=== PATIENT | male | born 1965 | race Two or more races ===

== ENCOUNTER 2024-07-13 12:11 | Emergency (ER) | payer OTHER, MEDICAID, SELFPAY ==
[2024-07-13 12:23] VITALS: BP 175/97; PULSE 101; RESP 20; TEMP 37.2; O2SAT 95; BMI 42.9
--- NOTE | 2024-07-13 12:49 | EDNOTE_ITS ---
ED Dental RME/HPI General Chief complaint: Dental/Oral/Throat Stated complaint: UPPER FRONT TOOTH PAIN X 1D Time Seen by Provider: 07/13/24 12:16 Source: patient Arrival date/time: 07/13/24 12:11 58-year-old male with no known medical history presents to the emergency room with a chief complaint of an abscess to the hard palate as well as dental pain x 1 day. Mode of arrival: ambulatory Limitations: no limitations Related Data Previous Rx's ?Medication ?Instructions ?Recorded naproxen 500 mg tablet 500 mg PO BID PRN pain #30 tabs 02/28/24 clindamycin HCl 150 mg capsule 450 mg (3 x 150 mg) PO TID 7 days 07/13/24 #63 caps Allergies Allergy/AdvReac Type Severity Reaction Status Date / Time ibuprofen Allergy Intermediate Rash Verified 07/13/24 12:14 Review of Systems Review of Systems Systems Reviewed: All systems reviewed, normal except as documented Constitutional Constitutional: Reports system reviewed and no additional complaints, except as documented, Denies fatigue, Denies fever(s), Denies headache(s) and Denies weakness Eyes Eyes: Reports system reviewed and no additional complaints, except as documented, Denies blurry vision and Denies change in vision ENT Ears, Nose, Mouth, and Throat: Reports system reviewed and no additional complaints, except as documented, Denies otalgia, Denies headache(s), Reports mouth pain, Denies nasal congestion, Denies throat swelling and Denies vertigo Cardiovascular Cardiovascular: Reports system reviewed and no additional complaints, except as documented, Denies chest pain, Denies dyspnea and Denies dyspnea on exertion Respiratory Respiratory: Reports system reviewed and no additional complaints, except as documented, Denies chest congestion, Denies cough, Denies dyspnea, Denies dyspnea on exertion and Denies wheezing Gastrointestinal Gastrointestinal: Reports system reviewed and no additional complaints, except as documented, Denies abdominal pain, Denies cramping, Denies nausea and Denies vomiting Genitourinary Genitourinary: Reports system reviewed and no additional complaints, except as documented, Denies dysuria and Denies hematuria Musculoskeletal Musculoskeletal: Reports system reviewed and no additional complaints, except as documented and Denies back pain Integumentary/Breasts Skin/Breast: Reports system reviewed and no additional complaints, except as documented and Denies wounds Neurologic Neurologic: Reports system reviewed and no additional complaints, except as documented, Denies confusion, Denies headache(s), Denies lack of coordination, Denies vertigo and Denies weakness Psychiatric Psychiatric: Reports system reviewed and no additional complaints, except as documented, Denies anxiety, Denies confusion, Denies depression, Denies paranoia, Denies suicidal ideation and Denies tactile hallucinations Endocrine Endocrine: Reports system reviewed and no additional complaints, except as documented and Denies fatigue Hematologic/Lymphatic Hematologic/Lymphatic: Reports system reviewed and no additional complaints, except as documented and Denies lymphadenopathy Allergic/Immunologic Allergic/Immunologic: Reports system reviewed and no additional complaints, except as documented, Denies throat swelling, Denies urticaria and Denies wheezing Past Medical History Past Medical History CARDIAC: Negative Congestive Heart Failure RESPIRATORY: Negative Chronic Obstructive Pulmonary Disease (COPD) GENITOURINARY: Negative Renal Disease ENDOCRINE: Negative Diabetes Mellitus Type 1 or Diabetes Mellitus Type 2 Social History SMOKING STATUS: Current every day smoker ED Exam General Limitations: Present no limitations General appearance: Present alert and in no apparent distress Head Head exam: Present atraumatic Eye Eye exam: Present normal appearance, PERRL and EOMI ENT ENT exam: Present normal exam, normal oropharynx and mucous membranes moist Expanded ENT Exam External ear exam: Present normal external inspection Teeth exam: Present dental caries and dental tenderness # Teeth numbered: 2 1. Other (Hard palate abscess) Neck Neck exam: Present normal inspection, full ROM and trachea midline Chest Chest inspection: Present normal inspection and symmetric chest wall rise Respiratory Respiratory exam: Present normal lung sounds bilaterally Cardiovascular Cardiovascular exam: Present regular rate, normal rhythm and normal heart sounds Abdominal Exam Abdominal exam: Present soft and normal bowel sounds Extremities Exam Extremities exam: Present normal inspection and full ROM Back Exam Back exam: Present normal inspection and full ROM Neurological Exam Neurological exam: Present alert, oriented X3 and CN II-XII intact Psychiatric Psychiatric exam: Present normal affect and normal mood Skin Skin exam: Present warm, dry, intact and normal color Course Quality Measures none Orders Category Date Time Status Clindamycin Vial [Cleocin vial] Med 07/13/24 12:36 Discontinued 600 mg IM X1 ONE HYDROcodone*/APAP 5/325 [[place] 5/325] Med 07/13/24 12:36 Discontinued 1 tab PO X1 ONE Vital Signs Vital signs: Vital Signs Temperature 98.9 F 07/13/24 12:23 Pulse Rate 101 H 07/13/24 12:23 Respiratory Rate 20 07/13/24 12:23 Blood Pressure 175/97 H 07/13/24 12:23 Pulse Oximetry (%) 95 07/13/24 12:23 Oxygen Delivery Method Room Air 07/13/24 12:23 O2 saturation 95% within normal limits Dental / Oral MDM Narrative MDM Narrative:: 58-year-old male with no known medical history presents to the emergency room with a chief complaint of an abscess to the hard palate as well as dental pain x 1 day. Clinically the patient appears nontoxic and in no apparent distress. Physical examination shows a small 2 cm circular abscess to the top right hard palate. Patient states this has been going on for 1 day and is causing him discomfort and pain. I spoke to the patient and told him that the treatment for this is an incision and to drain the abscess. Patient states that he does not want to have it drained and refused and stated that he would like to try antibiotics. Shared decision making was done and strict return precautions were given to the patient if there is worsening signs or symptoms to the area. Patient was educated to follow-up with his primary care provider and return to the emergency room for any evidence of worsening signs or symptoms Patient data External records reviewed:: [facility] previous records Clinical information provided by:: patient Social determinants that could affect healthcare access:: none Patient has the following chronic illnesses:: No chronic illness How is presenting disease/condition affected by chronic disease/condition?: no chronic disease Evaluation data The following diagnostics were reviewed and interpreted by me:: lab results and radiology exam(s) Lab and/or radiology exams considered but not ordered:: Labs and radiology exams considered and ordered Interpretation Summary: N/A Medications / Prescriptions Medications or Prescriptions considered but not ordered:: Medication given Medication administrations:: Medication Administration History Discontinued Medications Hydrocodone Bitart/Acetaminophen (Hydrocodone/Apap 5/325 Tablet) 1 tab PO X1 ONE Stop: 07/13/24 12:37 Last Admin: 07/13/24 13:04 Dose: 1 tab Documented By: OA Clindamycin Phosphate (Clindamycin Phos Inj 150 Mg/Ml Vial 6 Ml) 600 mg IM X1 ONE Stop: 07/13/24 12:37 Last Admin: 07/13/24 13:05 Dose: 600 mg Documented By: OA Medication given Consultations Consultation(s) initiated? (list below): No Diagnosis Dental Differential Diagnosis: dental caries, toothache, dental abscess and other (Hard palate abscess) Most likely diagnosis given after review of the tests above:: Hard palate abscess Admission Indicated Admission indicated?: not indicated Admission Request Was there a request for admission?: No Disposition Plan Disposition Plan: Discharge Discharge Attestation Discharge Attestation: The patient and all family members were given an opportunity to ask questions and understood the discharge instructions. Discharge instructions specifically effects, indications for sooner follow up or return to the emergency department, and the expected course of current diagnosis. Patient condition: Stable Discharge Plan Plan Patient Disposition: HOME (Self Care) Disposition Comment: Stable Prescriptions/Referrals Prescriptions/Med Rec: New clindamycin HCl 150 mg capsule 450 mg PO TID 7 Days Qty: 63 0RF No Action naproxen 500 mg tablet 500 mg PO BID PRN (Reason: pain) Qty: 30 0RF Problem List Clinical Impression: Hard palate abscess Patient/Caregiver Discharge Instructions Additional Instructions: Please follow-up with your dentist and your primary care provider in the next 24 to 48 hours. Antibiotics are sent to your pharmacy please pick them up and take them as indicated. You decided that at this time you did not want to have your wound drained. Please return in 48 hours if your signs and symptoms are worse. For any evidence of worsening signs or symptoms please return to the emergency room immediately Print Language: Austrian Stand Alone Forms: Angela Award Info., Patient Portal Info Letter ARIS/SOFY Supervising Physician ARIS/SOFY Supervising Physician: Dr. Yoder
[2024-07-13] MEDS: HYDROcodone/APAP 5/325 TABLET 1 TAB PO (13:04)
[2024-07-13] MEDS: CLINDAMYCIN PHOS INJ 150 MG/ML VIAL 6 ML 600 MG IM (13:05)
== END 2024-07-13 14:50 | disposition home or self-care (01) ==
PROVIDERS: Emergency Provider Emergency Medicine; PCP Family Medicine
DX: M27.2 Inflammatory conditions of jaws (principal)
CPT/HCPCS: 96372; 99283; J0736; A9270

== ENCOUNTER 2025-04-28 22:35 | Emergency (ER) | payer MEDICARE, MEDICAID, SELFPAY ==
[2025-04-28 22:36] VITALS: BMI 39.9
[2025-04-28 22:40] VITALS: BP 147/92; PULSE 90; RESP 18; TEMP 36.6; O2SAT 97
--- NOTE | 2025-04-28 22:58 | EDRME_ITS ---
Rapid Medical Screening Exam PENDING SALE TO [facility] Arrival date/time: 04/28/25 22:35 59M with history of DM Presents to ED with several weeks of intermittent RUQ/epigastric pain that started after he takes metformin. Patient denies N/V and alcohol/drug use. Patient was at [facility] recently where 2 EKGs and some blood work was done. Patient was supposed to get a CT there, but because he's a hard stick, he got upset from bleeding so much and left. Chief Complaint: Abdominal Pain Vital signs: Vital Signs Temperature 98 F 04/28/25 22:40 Pulse Rate 90 04/28/25 22:40 Respiratory Rate 18 04/28/25 22:40 Blood Pressure 147/92 H 04/28/25 22:40 Pulse Oximetry (%) 97 04/28/25 22:40 Oxygen Delivery Method Room Air 04/28/25 22:40 Exam: RUQ tenderness Clinical Impression: biliary disease vs gastritis vs drug adverse effect vs pancreatitis vs ab pain
[2025-04-28 23:17] LABS: Basophils # (Auto) 0.1 Thou/mm3 (0.0-0.2); Basophils % (Auto) 1 % (0-2.5); Eosinophils # (Auto) 0.1 Thou/mm3 (0.0-0.5); Eosinophils % (Auto) 1 % (0-10); Hematocrit 46.4 % (41.0-53.0); Hemoglobin 15.7 g/dL (13.5-16.0); Immature Granulocytes Auto 0.07 Thou/mm3 (0.00-0.00); Lymphocytes # (Auto) 1.6 Thou/mm3 (1.0-4.8); Lymphocytes % (Auto) 13 % (10-50); Mean Corpuscular HGB Conc 33.8 g/dl (31.0-37.0); Mean Corpuscular Hemoglobin 31.3 pg (25.0-35.0); Mean Corpuscular Volume 92 fL (80-100); Monocytes # (Auto) 0.9 Thou/mm3 (0.0-0.8); Monocytes % (Auto) 7 % (0-12); Neutrophils # (Auto) 9.6 Thou/mm3 (1.8-7.7); Neutrophils % (Auto) 78 % (37-80); Nucleated Red Blood Cell # 0.00 Thou/mm3 (0.00-0.00); Nucleated Red Blood Cell % 0 /100 WBC (0); Platelet Count 181 Thou/mm3 (140-440); RDW Standard Deviation 43.3 fL (35.1-43.9); Red Blood Count 5.02 Miln/mm3 (4.50-5.90); White Blood Count 12.3 Thou/mm3 (3.8-10.6)
[2025-04-28] MEDS: FAMOTIDINE 20 MG TABLET 40 MG PO (23:26)
[2025-04-28] MEDS: MG HYD/AL HYD/SIME (Maalox Reg) SUSP 30 ML UDC PO (23:26)
--- NOTE | 2025-04-29 | XR_ITS ---
MRI abdomen, without contrast. MRCP Date and time of exam: April 29, 2025, 1032 hours INDICATIONS: Right upper abdominal pain today, gallbladder sludge and large common bile duct on gallbladder sonogram today Technique: Multiple axial and coronal images of the abdomen have been obtained with the Siemens 1.5T MRI scanner. Images obtained included T1 weighted transverse images, T2-weighted transverse images, T2-weighted transverse images fat-suppressed, T2 weighted haste fat suppressed transverse images, T1 weighted images, in and out of phase images, T2-weighted coronal images, breath hold, T2 weighted haze coronal images as well as T2 weighted coronal thick slab images, MRCP. Findings: Mild hepatomegaly Gallstones versus sludge No definite gallbladder wall thickening Common bile duct Common hepatic duct 4 mm There is sludge material versus small stones in the common bile duct, coronal image 17 No pancreatic edema No splenic lesion Multiple small left renal cysts No ascites IMPRESSION: Gallbladder stones versus sludge Negative for acute cholecystitis Sludge material versus small stones in the common bile duct, consider ERCP
--- NOTE | 2025-04-29 00:05 | XR_ITS ---
Examination: Abdomen sonogram, Limited Date and time of exam: April 29, 2025, 0011 hours INDICATIONS: Right upper abdominal pain beginning this morning Technique: Real-time england scale transabdominal sonographic images of the upper abdomen obtained. Findings: Gallbladder sludge Negative for gallstones Normal gallbladder wall 0.25 cm Common bile duct abnormally enlarged 0.84 cm no definite stones Liver is 17.44 cm no focal liver lesions Normal hepatopetal portal venous flow Patent IVC IMPRESSION: Gallbladder sludge, negative for cholelithiasis, negative for cholecystitis Abnormal enlargement common bile duct, recommend MRCP follow-up to exclude stones versus stricture in the distal common bile duct
[2025-04-29 00:41] LABS: Alanine Aminotransferase 37 U/L (10-49); Albumin, Serum 4.1 gm/dL (3.5-5.0); Albumin/Globulin Ratio 1.2 (1.2-2.2); Alkaline Phosphatase 139 U/L (46-116); Anion Gap 8 (7-16); Aspartate Amino Transferase 44 U/L (0-34); BUN/Creatinine Ratio 8 Ratio (12-20); Bilirubin,Total 0.7 mg/dL (0.3-1.2); Blood Urea Nitrogen 8 mg/dL (9-23); Calcium 9.3 mg/dL (8.3-10.6); Calcium (Corrected) 9.3 mg/dL (8.5-10.1); Carbon Dioxide 30.0 mMol/L (20.0-31.0); Chloride 102 mMol/L (98-107); Creatinine (Component) 1.0 mg/dL (0.6-1.3); Estimated Creatinine Clearance 105.4 mL/min (>60); Globulin 3.3 gm/dL (2.3-3.5); Glucose 155 mg/dL (74-106); Osmolality,Calculated 280 (275-295); Potassium 4.0 mMol/L (3.4-5.1); Sodium 140 mMol/L (136-145); Total Protein 7.4 gm/dL (5.7-8.2); eGFR > 60 See Note
[2025-04-29] MEDS: HYDROcodone/APAP 5/325 TABLET 1 TAB PO (01:11)
[2025-04-29 01:47] LABS: Lipase 34 U/L (12-53)
--- NOTE | 2025-04-29 01:57 | PRELIM_ITS ---
Gallbladder ultrasound. April 29, 2025 at 0017 hours Clinical history: Upper abdominal pain. Findings: The visualized liver is normal in echogenicity. The main portal vein is patent and demonstrates hepatopetal flow. Sludge is seen in the gallbladder. No gallbladder calculus, wall thickening or pericholecystic fluid is identified. The common duct is dilated measuring 8.4 mm. The pancreas is obscured by bowel gas. The inferior vena cava is patent. Impression: Gallbladder sludge. No evidence of cholelithiasis, wall thickening or pericholecystic fluid. Dilated common bile duct. Recommend clinical correlation and further evaluation with MRCP. Report Electronically Signed By: Jose A Granger 04/29/2025 1:57:05 AM [EST]
--- NOTE | 2025-04-29 03:08 | EDNOTE_ITS ---
ED Abdominal Pain RME/HPI General Chief Complaint: Abdominal Pain Stated complaint: UPPER ABD PAIN Arrival date/time: 04/28/25 22:35 RME / HPI RME / HPI narrative: 04/28/25 22:35 59M with history of DM Presents to ED with several weeks of intermittent RUQ/epigastric pain that started he took metformin. Patient denies N/V and alcohol/drug use. Patient was at [place] [facility] recently where 2 EKGs and some blood work was done. Patient was supposed to get a CT there, but he's a hard stick so he got upset because was bleeding so much and left. Dr. Hughes?s Main ED Evaluation: 59yo male with a history of DM presents to the ED for a chief complaint of epigastric and RUQ pain. Patient states his pain started after he started taking metformin. Patient was seen in [place] for the same complaint, but left prior to getting the CT scan done. Patient reports associated sweating. Denies any N/V, fever, chills, or any other associated symptoms. Related Data Previous Rx's ?Medication ?Instructions ?Recorded naproxen 500 mg tablet 500 mg PO BID PRN pain #30 t abs 02/28/24 Allergies Allergy/AdvReac Type Severity Reaction Status Date / Time ibuprofen Allergy Intermediate Rash Verified 04/28/25 22:40 Review of Systems Review of Systems Systems Reviewed: All systems reviewed, normal except as documented Past Medical History Past Medical History CARDIAC: Negative Congestive Heart Failure RESPIRATORY: Negative Chronic Obstructive Pulmonary Disease (COPD) GENITOURINARY: Negative Renal Disease ENDOCRINE: Negative Diabetes Mellitus Type 1 or Diabetes Mellitus Type 2 Social History SMOKING STATUS: Current every day smoker ED Exam Narrative Physical exam: Generally patient is alert in mild distress secondary to pain, heart regular rate and rhythm, lungs clear to auscultation equal bilaterally, abdomen soft bowel sounds present nondistended right upper quadrant and epigastric abdominal tenderness without rebound. Abdomen is obese. Skin is warm and dry. Neurologic exam showed no focal motor deficits. No ataxia. Fernando Coma Scale 15. Course Quality Measures none Orders Category Date Time Status MRI Screening NOW Care 04/29/25 03:21 Active MR MRCP Stat Exams 04/29/25 Ordered US gall bladder Stat Exams 04/29/25 00:05 Taken CBC Stat Lab 04/28/25 23:07 Completed CMP [Comprehensive Metabolic Panel] Stat Lab 04/28/25 23:07 Completed Lipase Stat Lab 04/28/25 23:07 Completed Famotidine [Pepcid] Med 04/28/25 22:57 Discontinued 40 mg PO X1 ONE HYDROcodone*/APAP 5/325 [[place] 5/325] Med 04/29/25 01:02 Discontinued 1 tab PO X1 ONE Morphine* Inj Med 04/29/25 03:21 Discontinued 4 mg IM X1 ONE mg Hyd/Al Hyd/Bianca Susp [Maalox Susp] Med 04/28/25 22:57 Discontinued 30 ml PO X1 ONE Vital Signs Vital signs: Vital Signs Temperature 98 F 04/28/25 22:40 Pulse Rate 90 04/28/25 22:40 Respiratory Rate 18 04/28/25 22:40 Blood Pressure 147/92 H 04/28/25 22:40 Pulse Oximetry (%) 97 04/28/25 22:40 Oxygen Delivery Method Room Air 04/28/25 22:40 Abdominal Pain MDM MDM Narrative MDM Narrative:: Scribe Attestation: 04/29/25 - Michelle Martinez am scribing for and in the presence of Dr. Hughes. I interpreted all labs. White count is 12,300. Total bilirubin is normal. Alkaline phosphatase is 139. Gallbladder ultrasound showed gallbladder sludge with a slightly enlarged common bile duct of 8 mm. It was recommended by radiology that the patient undergo an MRCP. This is ordered and pending at this time. Case will be signed out to Dr. Rowe awaiting results of the MRCP. Patient received morphine 4 mg IM for pain. Patient data External records reviewed:: [facility] previous records (Per chart review, patient has no relevant previous ED visits.) Clinical information provided by:: patient Social determinants that could affect healthcare access:: none Patient has the following chronic illnesses:: DM How is presenting disease/condition affected by chronic disease/condition?: uneffected by Evaluation data The following diagnostics were reviewed and interpreted by me:: lab results and radiology exam(s) Lab and/or radiology exams considered but not ordered:: none Interpretation Summary: Telerad Preliminary Report Draft Patient: EDDIE TAM [facility]. Record#: [id number] Birthdate: 1965 Age/Sex: 59 / M Location: [facility] Attending Dr: Ordering Physician: Date of Service: Procedure(s): Accession Number(s): cc: ~ Gallbladder ultrasound. April 29, 2025 at 0017 hours Clinical history: Upper abdominal pain. Findings: The visualized liver is normal in echogenicity. The main portal vein is patent and demonstrates hepatopetal flow. Sludge is seen in the gallbladder. No gallbladder calculus, wall thickening or pericholecystic fluid is identified. The common duct is dilated measuring 8.4 mm. The pancreas is obscured by bowel gas. The inferior vena cava is patent. Impression: Gallbladder sludge. No evidence of cholelithiasis, wall thickening or pericholecystic fluid. Dilated common bile duct. Recommend clinical correlation and further evaluation with MRCP. Report Electronically Signed By: Jose A Granger 04/29/2025 1:57:05 AM Medications / Prescriptions Medications or Prescriptions considered but not ordered:: none Medication administrations:: Medication Administration History Discontinued Medications Hydrocodone Bitart/Acetaminophen (Hydrocodone/Apap 5/325 Tablet) 1 tab PO X1 ONE Stop: 04/29/25 01:03 Last Admin: 04/29/25 01:11 Dose: 1 tab Documented By: SMOTOH Al Hydrox/Mg Hydrox/Simethicone (Mg Hyd/Al Hyd/Bianca (Maalox Reg) Susp 30 Ml Udc) 30 ml PO X1 ONE Stop: 04/28/25 22:58 Last Admin: 04/28/25 23:26 Dose: 30 ml Documented By: NIA Famotidine (Famotidine 20 Mg Tablet) 40 mg PO X1 ONE Stop: 04/28/25 22:58 Last Admin: 04/28/25 23:26 Dose: 40 mg Documented By: NIA Morphine Sulfate (Morphine Sulf Inj 4 Mg/Ml Vial) 4 mg IM X1 ONE Stop: 04/29/25 03:22 Last Admin: 04/29/25 04:05 Dose: 4 mg Documented By: [email or web address] see above Consultations Consultation(s) initiated? (list below): No Diagnosis Differential diagnosis abdominal pain: other (See MDM) Most likely diagnosis given after review of the tests above:: see clinical impression below Admission Indicated Admission indicated?: not indicated Admission Request Was there a request for admission?: No Disposition Plan Disposition Plan: other (specify) (Signed out to Dr. Gaona at 0600 pending MRCP.) Discharge Plan Prescriptions/Referrals Prescriptions/Med Rec: No Action naproxen 500 mg tablet 500 mg PO BID PRN (Reason: pain) Qty: 30 0RF Referrals: Getachew Swenson MD [Primary Care Provider] - In 1 week Problem List Clinical Impression: Gallbladder sludge Patient/Caregiver Discharge Instructions Print Language: Vietnamese
[2025-04-29] MEDS: MORPHINE SULF INJ 4 MG/ML VIAL IM ×2 (04:05→06:23)
[2025-04-29 05:47] VITALS: BP 186/112; PULSE 89; RESP 19; TEMP 36.8; O2SAT 96
[2025-04-29] MEDS: MG HYD/AL HYD/SIME (Maalox Reg) SUSP 30 ML UDC PO (06:22)
[2025-04-29] MEDS: LIDOCAINE VISCOUS 2% 15 ML UDC PO (06:23)
[2025-04-29 07:52] VITALS: BP 183/115; PULSE 98; RESP 18; O2SAT 96
[2025-04-29] MEDS: Milk Of Magnesia Susp 30 ML UDC PO (08:04)
[2025-04-29] MEDS: HYDROmorphone INJ 2 MG/ML VIAL 0.5 MG IVP (08:04)
[2025-04-29] MEDS: ONDANSETRON INJ 2 MG/ML INJ 2 ML 4 MG IVP ×3 (08:05→12:46)
[2025-04-29 08:54] VITALS: BP 142/66; PULSE 95; RESP 17; TEMP 36.8; O2SAT 96
[2025-04-29] MEDS: HYDROmorphone INJ 2 MG/ML VIAL 1 MG IVP (09:51)
--- NOTE | 2025-04-29 11:33 | PD.EDADDENDU ---
Emergency Room Addendum Addendum Narrative: 0600: Care assumed from Dr. Hughes, the previous shift emergency physician. Past medical, surgical, social and family history reviewed. Vitals and home medications reviewed. I will assume the care of the patient at this time, pending MRCP and final disposition. Please refer to the emergency department record for history and examination from initial visit.?The following addendum documentation note is intended to reflect any pending information, findings, or radiology results not included in the patient?s initial chart. 1252: I spoke with transfer nurse Nelia at [facility]. Discussed patients PMHx, HPI, ED course, exam findings, labs, and radiology results. States their team is reviewing the case. 1435: I spoke with transfer nurse and GI Dr. Dunn at [facility]. He accepts the patient for transfer. Throughout ED course, patient complained of severe pain and given multiple doses of Dilaudid. 1545: EMS here to transfer patient. RADIOLOGY Ordering Physician: Adelso Hughes DO Date of Service: 04/29/25 Procedure(s): MR MRCP Accession Number(s): [id number] cc: Getachew Swenson MD; Grayson Ventura MD; Adelso Hughes DO~ MRI abdomen, without contrast. MRCP Date and time of exam: April 29, 2025, 1032 hours INDICATIONS: Right upper abdominal pain today, gallbladder sludge and large common bile duct on gallbladder sonogram today Technique: Multiple axial and coronal images of the abdomen have been obtained with the Siemens 1.5T MRI scanner. Images obtained included T1 weighted transverse images, T2-weighted transverse images, T2-weighted transverse images fat-suppressed, T2 weighted haste fat suppressed transverse images, T1 weighted images, in and out of phase images, T2-weighted coronal images, breath hold, T2 weighted haze coronal images as well as T2 weighted coronal thick slab images, MRCP. Findings: Mild hepatomegaly Gallstones versus sludge No definite gallbladder wall thickening Common bile duct Common hepatic duct 4 mm There is sludge material versus small stones in the common bile duct, coronal image 17 No pancreatic edema No splenic lesion Multiple small left renal cysts No ascites IMPRESSION: Gallbladder stones versus sludge Negative for acute cholecystitis Sludge material versus small stones in the common bile duct, consider ERCP Dictated By:Grayson Ventura MD Signed By:<Electronically signed by Grayson Ventura MD in [place]>04/29/25 1147
[2025-04-29 11:50] VITALS: BP 178/92; PULSE 91; RESP 17; TEMP 36.5; O2SAT 98
--- NOTE | 2025-04-29 12:39 | PC.CM ---
Addendum entered by Jaison Winslow RN 04/29/25 14:39: 1439-Patient accepted by [facility], Dr. Dunn, ER to ER, number for report [phone]. ER CN Amanda notified, will set up transport. Original Note: Received transfer request for GI services, patient with severe RUQ pain, MRCP with stones in CBD needing ERCP. Packet created and sent to [facility] and . Imaging CD created and added to packet.
[2025-04-29] MEDS: HYDROmorphone INJ 2 MG/ML VIAL IVP (12:46)
--- NOTE | 2025-04-29 14:34 | PC.NURSE ---
NATASHA FROM [facility] CALLING TO SPEAK WITH DR BOBBY AT THIS TIME.
[2025-04-29 15:02] VITALS: BP 168/108; PULSE 102; RESP 16; TEMP 36.6; O2SAT 95
--- NOTE | 2025-04-29 15:08 | PC.NURSE ---
report called via telephone to akin dias from [facility]
== END 2025-04-29 15:28 | disposition short-term general hospital (02) ==
PROVIDERS: Physician Assistant; Emergency Provider Family Medicine; PCP Family Medicine
DX: K82.8 Other specified diseases of gallbladder (principal); E11.9 Type 2 diabetes mellitus without complications
CPT/HCPCS: 36415; 74181; 76705; 80053; 83690; 85025; 96372; 96374; 96375; 96376; 99285; J1171; J2270; J2405; J3490; A9270